=== PATIENT | male | born 1960 | race Caucasian/White ===

== ENCOUNTER 2018-05-06 20:34 | Emergency (ER) | payer OTHER ==
[~2018-05-06] VITALS: Ht 188 cm; Wt 115.0 kg
[2018-05-06] MEDS ORDERED: ALLOPURINOL (20:47)
[2018-05-06] MEDS ORDERED: VALSARTAN (20:47)
[2018-05-06] MEDS ORDERED: CRESTOR (20:47)
[2018-05-06 21:03] LABS: BASOPHILS # (AUTO) 0.06 x10^3/uL (0-0.1); BASOPHILS % (AUTO) 1 % (0-1); EOSINOPHILS # (AUTO) 0.27 x10^3/uL (0-0.4); EOSINOPHILS % (AUTO) 3 % (1-7); LYMPHOCYTES # (AUTO) 3.27 x10^3/uL (1-3.4); LYMPHOCYTES % (AUTO) 34 % (22-44); MD NO; MEAN CORPUSCULAR HEMOGLOBIN 31.3 pg (27.5-34.5); MEAN CORPUSCULAR HGB CONC 34.3 g/dL (33.2-36.2); MEAN CORPUSCULAR VOLUME 91.3 fL (81-97); MEAN PLATELET VOLUME 7.4 fL (7.4-10.4); MONOCYTES # (AUTO) 0.59 x10^3/uL (0.2-0.8); MONOCYTES % (AUTO) 6 % (2-9); NEUTROPHILS # (AUTO) 5.44 x10^3/uL (1.8-6.8); NEUTROPHILS % (AUTO) 57 % (42-75); PLATELET COUNT 292 x10^3/uL (130-400); RED BLOOD COUNT 4.39 x10^6/uL (4.38-5.82); RED CELL DISTRIBUTION WIDTH 12.8 % (9.4-14.8)
--- NOTE | 2018-05-06 21:05 | NUR ---
RESTING QUIETLY, NSR MONITOR WITHOUT ECTOPY, REPORTS THAT HE IS FEELING BETTER AT THIS TIME, FLUIDS INFUSING PER MD ORDER. AT BEDSIDE.
[2018-05-06 21:16] LABS: ALBUMIN 3.8 g/dL (3.4-5.0); ANION GAP 11 mmol/L (5-15); CALCIUM 8.5 mg/dL (8.5-10.1); CHLORIDE 104 mmol/L (98-107); CREATININE 1.36 mg/dL (0.7-1.3)
[2018-05-06 21:20] LABS: TROPONIN I < 0.015 ng/mL (0.000-0.045)
[2018-05-06] MEDS ORDERED: SODIUM CHLORIDE 0.9% 1,000 ML IV SCH (21:30)
[2018-05-06] MEDS ORDERED: POTASSIUM CHLORIDE 20 MEQ TAB.ER.PRT PO ONE (21:30)
[2018-05-06 21:41] VITALS: BP 125/74
[2018-05-06] MEDS ORDERED: POTASSIUM CHLORIDE 20 MEQ TAB.ER.PRT ONE (21:43)
--- NOTE | 2018-05-06 22:03 | NUR ---
pt discharged at htis time, feeling much better, aware of need to f/u with MD at home and aware of need to check B/P, is very much on boards with this plan, aware to please stay as hydrated as possible and to change position slowly. Very niche delightful people, NAD at discharge, pt ambulating with steady gait and back to hotel in taxi with .
== END 2018-05-06 22:09 | disposition home or self-care (01) ==
LOC: ED 22:03
DX: E86.0 Dehydration (principal); E87.6 Hypokalemia; R55 Syncope and collapse
CPT/HCPCS: 36415; 80048; 82040; 84484; 85025; 93005; 96360; 99284; J7030